=== PATIENT | female | born 1965 | race Caucasian/White ===

== ENCOUNTER 2024-05-29 10:39 | Outpatient (REF) | payer MEDICARE, MEDICAID, SELFPAY ==
--- OUTSIDE RECORDS SUMMARY | 2024-05-30 12:39 | XMS_ITS | Clinical Summary ---
Author Organization [facility] Address [address] [place] [address] Care Team Providers Care Accreditation Specialist Name Role Phone ToyinDavis pryor RATOPRINTER-C Primary Care Provider [phone] Source Comments PLEASE NOTE, if this patient is a minor, it may be UNLAWFUL to discuss sensitive information that is contained in these records (such as FAMILY PLANNING, MENTAL HEALTH or SUBSTANCE ABUSE) with the minor patient's parent or other person without the patient's specific authorization.[facility] Allergies No known active allergies Medications miscellaneous medical supply miscIndications:Hi p pain,Protrusion of intervertebral disc of lumbosacral region,Unstable gait Cane x 99 years 1 Each 01/15/20 21 Active miscellaneous medical supply miscIndications:Pr otrusion of intervertebral disc of lumbosacral region,DDD (degenerative disc disease), lumbar Dispense 1 walker with wheels, brake and bench. Lifetime use. Dx: DDD (degenerative disc disease), lumbar [M51.36], Protrusion of intervertebral disc of lumbosacral region [M51.27] 1 Each 08/20/19 22 Active miscellaneous medical supply miscIndications:Pr otrusion of intervertebral disc of lumbosacral region,Primary osteoarthritis of left knee,BMI 40.0-44.9, adult ([facility]) Dispense 1 lightweight wheelchair with back and seat cushion. Lifetime use. Dx: Protrusion of intervertebral disc of lumbosacral region [M51.27], Primary osteoarthritis of left knee [M17.12], BMI 40.0-44.9, adult ([facility]) [Z68.41] 1 Each 09/04/19 22 Active miscellaneous medical supply miscIndications:DD D (degenerative disc disease), lumbar,Protrusion of intervertebral disc of lumbosacral region Dispense 1 electric heating pad. Lifetime use. Dx: Protrusion of intervertebral disc of lumbosacral region [M51.27], DDD (degenerative disc disease), lumbar [M51.36] 1 Each 09/09/19 22 Active prazosin (MINIPRESS) 1 mg capsule [facility]/pharmacy #[address] [place] [address] 30.00 Each 0 30 TAKE 1 CAPSULE BY MOUTH EVERYDAY AT BEDTIME Authorized by: ISABELLE DAVALOS 10/19/19 22 Active traZODone (DESYREL) 150 mg tablet [facility]/pharmacy #[address] [place] [address] 60.00 Each 2 30 TAKE 1-2 TABLETS BY MOUTH AT BEDTIME, NEEDED FOR SLEEP Authorized by: ISABELLE DAVALOS 10/12/19 22 Active sertraline 150 mg cap [facility]/pharmacy #[facility] [place], [place] [phone] 30.00 Capsule 3 30 Unit Strength: 150 MG Authorized by: ISABELLE DAVALOS 04/14/19 23 Active blood pressure test kit-large SMBP Program - [employer] - Checking BP Daily 1 Kit 05/25/19 23 Active acetaminophen (TYLENOL) 500 mg tabletIndications: DDD (degenerative disc disease), lumbar,Protrusion of intervertebral disc of lumbosacral region TAKE 2 TABLETS BY MOUTH EVERY 8 HOURS NEEDED FOR PAIN. 90 Tablet 2 03/13/19 25 Active amLODIPine (NORVASC) 10 mg tabletIndications: Essential hypertension Take 1 Tablet by mouth once daily 90 Tablet 1 03/13/19 25 Active baclofen (LIORESAL) 10 mg tabletIndications: DDD (degenerative disc disease), lumbar,Protrusion of intervertebral disc of lumbosacral region,Primary osteoarthritis of left knee Take 1 Tablet by mouth 2 (two) times daily as needed for muscle spasms 60 Tablet 2 03/13/19 25 Active cetirizine (ZYRTEC) 10 mg tabletIndications: Seasonal allergies TAKE 1 TABLET BY MOUTH ONCE DAILY FOR SEASONAL ALLERGIES Strength: 10 mg 90 Tablet 1 03/13/19 25 Active diclofenac sodium (VOLTAREN) 1 % gelIndications:DDD (degenerative disc disease), lumbar,Protrusion of intervertebral disc of lumbosacral region,Primary osteoarthritis of left knee Apply topically 2 (two) times daily as needed for pain 100 g 03/13/19 25 Active hydroCHLOROthiazid e (HYDRODIURIL) 25 mg tabletIndications: Essential hypertension Take 1 Tablet by mouth once daily for high blood pressure 90 Tablet 1 03/13/19 25 Active hydrocortisone 2.5 % cream Apply topically 2 (two) times daily to affected area 28 g 1 03/13/19 25 Active lidocaine (LIDODERM) 5 % patchIndications:D DD (degenerative disc disease), lumbar,Protrusion of intervertebral disc of lumbosacral region,Primary osteoarthritis of left knee Place 1 Patch onto the skin once daily (every 24 hours) 30 Patch 2 03/13/19 25 Active naproxen (NAPROSYN) 500 mg tabletIndications: DDD (degenerative disc disease), lumbar,Protrusion of intervertebral disc of lumbosacral region,Primary osteoarthritis of left knee Take 1 Tablet by mouth 2 (two) times daily with a meal 90 Tablet 1 03/13/19 25 Active omeprazole (PRILOSEC) [address] capsuleIndications :Hiatal hernia with GERD Take 1 Capsule by mouth every morning before breakfast 90 Capsule 1 03/13/19 25 Active pravastatin (PRAVACHOL) 20 mg tabletIndications: hypercholesterolem ia Take 1 Tablet by mouth nightly at bedtime Indications: high cholesterol 90 Tablet 1 03/13/19 25 Active hydrOXYzine pamoate (VISTARIL) 25 mg capsule TAKE 1 CAPSULE BY MOUTH THREE TIMES A DAY NEEDED FOR ANXIETY OR SLEEP 90 Capsule 1 04/10/19 25 Active Active Problems Problem Noted Date Diagnosed Date Mixed hyperlipidemia 09/08/2021 Walker as ambulation aid 08/11/2021 Protrusion of intervertebral disc of lumbosacral region 01/14/2021 Overview (02/03/2021): Report: MR Lumbar Spine WO Ordered By: VENANCIO MAGALLON PA-C Date: 01/10/2021 12:38:24 PM -05:00 Status: F MR Lumbar Spine WO INDICATIONS: RECURRENT CHRONIC LT SIDED LBP. COMPARISON: X-ray series 03/18/2020. TECHNIQUE: Multiplanar MR sequences of the lumbar spine were obtained without the administration of intravenous contrast. FINDINGS: For the purposes of this dictation, the lowest well-formed intervertebral disc space is assumed to be the L5-S1 level, and there are presumed to be 5 lumbar type vertebral bodies. The vertebral bodies are normally aligned. Bone marrow signal intensity is within normal limits. Conus medullaris terminates at the level of L1. Visualized cauda equina is unremarkable. Levels T12-L1: Mild disc desiccation.. No central or neural foraminal stenosis. L1-L2: Mild disc desiccation and annular bulge. Bilateral facet arthrosis. No central or neural foraminal stenosis. L2-L3: Mild disc desiccation. Posterior broad-based disc bulge. Fluid attenuation within the facet articulations and mild ligamentous laxity. No central canal stenosis and neural foraminal narrowing. L3-L4: Disc desiccation and mild annular bulge.. No central or neural foraminal stenosis. Mild facet arthrosis. L4-L5: Broad-based annular bulge. Trace right subarticular disc protrusion causing mild asymmetric to the right lateral recess and minimal narrowing in the right neural foramina. Ligamentous laxity and facet arthrosis. No central canal stenosis. L5-S1: Disc desiccation and left paracentral 6 x 9 mm disc protrusion with mass effect upon the traversing S1 nerve root and posterior displacement of S2 nerve root. Effacement of the left lateral recess. Bilateral facet arthrosis, right greater than left. Mild ligamentous laxity. No significant central canal stenosis. No right neural foraminal narrowing. Moderate to severe left neural foraminal narrowing The visualized soft tissues are unremarkable. IMPRESSION: 1. 6 x 9 mm left paracentral disc protrusion extending into the left lateral recess at L5-S1 with mass effect upon the traversing S1 nerve root and posterior displacement of the S2 nerve root. 2. No central canal stenosis. Fatty liver 12/05/2020 Overview (12/05/2020): [address] [address] A Member of [facility] Patient: SCOTT ALTAMIRANO : 1965 -04:00 Age: 54 Gender: F Account: [id number] Report: CT Abdomen & Pelvis WO Cont Ordered By: KAROLYN PITTMAN MD Date: 08/13/2020 4:23:39 PM -04:00 Status: F History: Left flank pain. Comparison: None Findings: Noncontrast abdomen pelvis CT was performed on a GE CT scanner which utilized low-dose iterative reconstruction technique with automatic exposure control based on patient size. Dose: 1221.03 DLP (mGy-cm) No incidental findings per PQRS measures. Diffuse fatty infiltration of the liver. Progressive small hiatal hernia. Multiple gallstones in the gallbladder fundus measuring up to 2 cm. Normal distal stomach, spleen, pancreas, adrenal glands, right kidney, small bowel, appendix, colon, bladder, rectum, uterus and adnexa. Left kidney demonstrates a lower pole partially exophytic 8 mm hyperdense peripheral cortical renal lesion. There is no free air, free fluid, aneurysm, bowel obstruction or adenopathy. Osseous and vascular structures unremarkable. IMPRESSION: No acute intra-abdominal abnormality. Cholelithiasis. Fatty infiltration of the liver. 8 mm peripheral left kidney lower pole lesion suggesting possible hyperdense cyst. Consider nonemergent outpatient renal ultrasound follow-up. Hiatal hernia with GERD 12/05/2020 BMI 40.0-44.9, adult ([facility]) 12/05/2020 Seasonal allergies 12/05/2020 Essential hypertension 12/04/2020 Primary insomnia 12/04/2020 Anxiety and depression 12/04/2020 DDD (degenerative disc disease), lumbar 12/05/19 21 Overview (02/03/2021): ??ADDENDUM 01/16/2021: - MRI of lumbar spine from 01/10/2021 shows 6 x 9 mm left paracentral disc protrusion extending into the left lateral recess at L5-S1 with mass effect upon the traversing S1 nerve root and posterior displacement of the S2 nerve root. [facility] Report: CR Spine Lumbar 2 or 3 Views HISTORY: The patient is a 54-year-old female with low back pain, nontraumatic. FINDINGS: AP, lateral, and coned-down spot lateral views of the lumbosacral spine demonstrate normal alignment of the bony structures. No fracture is seen. The disc spaces are well-maintained. Degenerative osteophytes are present at the L2-3 level. IMPRESSION: No acute findings. Small degenerative osteophytes are present at L2- 3. Otherwise, normal examination of the lumbosacral spine. Hx of section 12/04/2020 Primary osteoarthritis of left knee 12/04/2020 Overview (12/04/2020): Report: CR Knee LT 4 or more View HISTORY: The patient is a 54-year-old female with left knee pain for several months. No history of trauma is provided. FINDINGS: AP, lateral, internal rotation, and external rotation views of the left knee are obtained. The study demonstrates no fracture or dislocation. There is peaking of the tibial spines and small osteophytes arise from the medial and lateral femoral condyles and medial tibial plateau. These findings are consistent with mild osteoarthritis and have mildly progressed since the prior study 03/14/2014. There is a small suprapatellar joint effusion. IMPRESSION: No evidence of bony injury. Mild osteoarthritis, mildly progressive since 03/14/2014. There is a small suprapatellar joint effusion. Encounters Date Type Department Care Team Description 03/13/2024 10:40 AM EST Office Visit [address] [address] Davis Deal FNP-C Routine general medical examination at a health care facility (Primary Dx); Colon cancer screening; DDD (degenerative disc disease), lumbar; Protrusion of intervertebral disc of lumbosacral region; Seasonal allergies; Primary osteoarthritis of left knee; Essential hypertension; Mixed hyperlipidemia; BMI 40.0-44.9, adult ([facility]); Anxiety and depression; Hiatal hernia with GERD; Primary insomnia; LUQ pain; Elevated red blood cell count 03/13/2024 Travel from Last 3 Months Immunizations Immunization Administration Dates Next Due Flu, Cell Culture based, Pre servative Free, 6m+, Flucelvax 11/14/2019 Flu, Preservative Free 11/13/2021,12/04/2020 Influenza (FLUBLOK),recombinant,injectable,preservative Free 02/15/2024 Moderna COVID-19 Vaccine, re d cap blue label, 12+ Primary Series 07/14/2020,06/16/2020 TDAP 06/24/2020 ZOSTER VACCINE, RECOMBINANT (SHINGRIX) 1,09/07/2020 Family History Medical History Relation Name Comments No Known Problems Brother No Known Problems Sister Relation Name Status Comments Brother Father Sister Social History Tobacco Use Types Packs/Day Years Used Date Smoking Tobacco: Never Smokeless Tobacco: Never Tobacco Cessation:Counseling Given: Not Answered Alcohol Use Standard Drinks/Week Comments Never 0 (1 standard drink = 0.6 oz pur e alcohol) Social Connections Answer Date Recorded Connectedness 0 03/23/2022 Financial Resource Strain Answer Date R ecorded Financial Resource Strain 0 2022 Stress Answer Date Recorded Stress 0 03/23/2022 Physical Activity Answer Date Recorded Physical Activity 0 06/16/2020 Food Insecurity Answer Date Recorded Food 0 03/23/2022 Transportation Needs Answer Date Record ed Transportation 0 03/23/2022 Housing Stability Answer Date Recorded Housing 0 03/23/2022 Safety and Environment Answer Date Fly rded Safety 0 03/23/2022 Utilities Answer Date Recorded Utilities 0 03/23/2022 Employment Answer Date Recorded Stress 0 05/18/2021 Comments No Sex and Gender Information Value Date Recorded Sex Assigned at Female 12/05/2020 1:10 AM PDT Legal Sex Female 7:58 AM PDT Gender Identity Female 12/05/2020 1:10 AM PDT Sexual Orientation Straight 12/05/2020 1: 10 AM PDT Last Filed Vital Signs Vital Sign Reading Time Taken Comments Blood Pressure 110/88 03/13/2024 10:51 AM EST Pulse 95 03/13/2024 10:51 AM EST Temperature 37.2 ??C (98.9 ??F) 02/15/2024 9:39 AM ES T Respiratory Rate 18 03/13/2024 10:51 AM EST Oxygen Saturation 99% 03/13/2024 10:51 AM EST Inhaled Oxygen Concentration - - Weight 99.8 kg (220 lb) 03/13/2024 10:51 AM EST Height 157.5 cm (5' 2 ) 03/13/2024 10:51 AM EST Body Mass Index 40.24 03/13/2024 10:51 AM EST Plan of Treatment Upcoming Encounters Date Type Department Care Team (Late st Contact Info) Description 06/19/2024 10:20 AM EDT Office Visit [facility] [address] [place] [phone] Davis Deal FNP-C [address] [place] [address] 06/19/2024 11:20 AM EDT Office Visit [facility] [address] [place] [address] Beverly Blount MD [address] [place] [address] Health Maintenance Due Date Last Done Comments Anxiety Screening 1965 HPV Screening 1965 Pap + HPV 1965 Cervical Cancer Screening [address] Colonography 2009 Colonoscopy 2009 Flexible Sigmoidoscopy 2009 [id number] ( season) 2024 07/14/2020, 06/16/2020 Postponed from 10/30/2023 (Patient postponement) Tobacco Screening 02/14/2025 02/15/2024, , 05/24/2022 Depression Monitoring 03/13/2025 03/13/2024 , 03/23/2022, 02/03/2021 Lipid Screening 03/13/2025 03/13/2024, 07/30, 04/26/2022, Additional history exists Medicare Annual Wellness Visit 03/13/2025 03/13/2024, 08/26/2022 FIT/gFOBT 05/06/2025 05/06/2024 Breast Cancer Screening (Mammogram) 03/26/2026 03/26/2024, 03/01/2024 Diabetes Screening 03/13/2027 03/13/2024, 0 03/13/2024, 08/26/2022, Additional history exists Colorectal Cancer Screening 05/07/2027 Fecal DNA 05/07/2027 05/06/2024 Imm-DTaP/Tdap/Td (2 - Td or Tdap) 06/24/2030 06/24/2020 Imm-Zoster, Recombinant Completed 11/20/2020, 09/07 HIV Screening Completed 12/04/2020 Hepatitis C Screening Completed 04/26/2022 Imm-Influenza Completed 02/15/2024, 10/29, 12/04/2020, Additional history exists Alcohol and Drug Screen Completed 03/13/19, 03/23/2022, 07/21/2021, Additional history exists Cervical Ablation/Cold-Knife Conization Discontinued Cervical Cryotherapy Discontinued Colposcopy Discontinued Endometrial Biopsy Discontinued Excision/Leep Discontinued HPV Genotyping Discontinued Imm-Hepatitis B Discontinued Vaginal Pap Discontinued Vulvoscopy Discontinued Goals Goal Patient Goal Type Associated Problems Recent Progress Patient-Stated? Author Exercise 3x per week (30 min per time) Exercise Yes Lazaro Porras, Amilcar Hypertension: Check BP regularly (@home or in office) General No Lazaro Porras PharmD Note: 1 daily Remain at or Below Target Blood Pressure General No Lazaro Porras PharmD Note: <130/80 mmHg Procedures Procedure Name Priority Date/Time Associated Diagnosis Comments COLOGUARD Routine 05/06/2024 4:00 AM EDT Colon cancer screening OTHER ORDERS SCANNED DOCUMENT 04/04/2024 3:00 AM EST REFERRAL SCANNED DOCUMENT 03/30/2024 3:00 AM EST IMAGING SCANNED DOCUMENT 03/26/2024 3:00 AM EST HISTORIC MAMMOGRAM 03/26/2024 3: 00 AM EST HEMOGLOBIN GLYCOSYLATED A1C Routine 03/13/2024 12:25 PM EST Routine general medical examination at a health care facility LIPID PANEL Routine 03/13/2024 12:25 PM EST Routine general medical examination at a health care facility THYROID CASCADING REFLEX PANEL Routine 03/13/2024 12:25 PM EST Routine general medical examination at a health care facility COMPREHENSIVE METABOLIC PANEL Routine 03/13/2024 12:25 PM EST Routine general medical examination at a health care facility BLOOD COUNT COMPLETE AUTO&AUTO DIFRNTL WBC Routine 03/13/2024 12:25 PM EST Routine general medical examination at a health care facility IMAGING SCANNED DOCUMENT 03/01/2024 3:00 AM EST REFERRAL FOR MAMMOGRAM Routine 03/01/2024 3:00 AM EST Screening mammogram for breast cancer HEPATITIS C AB W/RFLX HCV RNA, QT, RT PCR Routine 04/26/2022 11:34 AM EST Essential hypertension BMI 40.0-44.9, adult ([facility]) Hiatal hernia with GERD Mixed hyperlipidemia Anxiety and depression Venereal disease screening DDD (degenerative disc disease), lumbar Primary osteoarthritis of left knee HIV 1/2 AG & AB W/RFLX (4TH GEN) Routine 12/04/2020 2:52 PM EDT Screening for HIV (human immunodeficiency virus) from Last 3 Months or Most Recently Relevant to Health Maintenance Results * COLOGUARD (05/06/2024 4:00 AM EDT) Stool Stool specimen / Unknown 05/06/2024 4:00 AM EDT Elaina Toyin RATOPRINTER-C LAB - NO BLOOD DRAW Final Result [facility] [address] [place] [address], [address] [facility] [id number] [place] [address], [place] [phone] * OTHER ORDERS SCANNED DOCUMENT (04/04/2024 3:00 AM EST) 04/04/2024 3:00 AM EST Elaina Toyin RATOPRINTER-C SCAN OTHER ORDERS Final R esult * REFERRAL SCANNED DOCUMENT (03/30/2024 3:00 AM EST) 03/30/2024 3:00 AM EST [facility] Provider Default SCAN REFERRAL Final Resu lt * HISTORIC MAMMOGRAM (03/26/2024 3:00 AM EST) 03/26/2024 3:00 AM EST us Beverly Blount MD IMG MAMMO Final Result * IMAGING SCANNED DOCUMENT (03/26/2024 3:00 AM EST) Only the most recent of2 resultswithin the time period is included. 03/26/2024 3:00 AM EST us Beverly Blount MD SCAN IMAGING Final Result * THYROID CASCADING REFLEX PANEL (03/13/2024 12:25 PM EST) Pathologist [facility] TSH 2.46 0.40 - 4.50 mIU/L [facility] Blood Blood / Unknown 03/13/2024 1 2:25 PM EST 03/13/2024 12:25 PM EST Narrative [facility] - 03/14/2024 9:48 AM EST FASTING:YES Davis Deal RATOPRINTER-C LAB - BLOOD DRAW Edited R esult - Final [facility] [address] [place] [address], [facility] [address] [address] * (ABNORMAL) BLOOD COUNT COMPLETE AUTO&AUTO DIFRNTL WBC (03/13/2024 12:25 PM EST) Pathologist [facility] WHITE BLOOD CELL COUNT 10.0 3.8 - 10.8 Thousand/ uL [facility] RED BLOOD CELL COUNT 5.96(H) 3.80 - 5.10 Million/u L [facility] HEMOGLOBIN 15.8(H) 11.7 - 15.5 g/dL [facility] HEMATOCRIT 48.9(H) 35.0 - 45.0 % [facility] MCV 82.0 80.0 - 100.0 fL [facility] MCH 26.5(L) 27.0 - 33.0 pg [facility] MCHC 32.3 32.0 - 36.0 g/dL [facility] Comment: For adults, a slight decrease in the calculated MCHC value (in the range of 30 to 32 g/dL) is most likely not clinically significant; however, it should be interpreted with caution in correlation with other red cell parameters and the patient's clinical condition. RDW 14.1 11.0 - 15.0 % [facility] PLATELET COUNT 416(H) 140 - 400 Thousand/ uL [facility] MPV 10.9 7.5 - 12.5 fL [facility] ABSOLUTE NEUTROPHILS 6,780 1,500 - 7,800 cells/uL [facility] ABSOLUTE LYMPHOCYTES 2,140 850 - 3,900 cells/uL [facility] ABSOLUTE MONOCYTES 890 200 - 950 cells/uL [facility] ABSOLUTE EOSINOPHILS 120 15 - 500 cells/uL [facility] ABSOLUTE BASOPHILS 70 0 - 200 cells/uL [facility] NEUTROPHILS PCT 67.8 % [employer] LYMPHOCYTES 21.4 % [facility] MONOCYTES 8.9 % [facility] EOSINOPHILS 1.2 % [facility] BASOPHILS 0.7 % [employer] [facility] Blood Blood / Unknown 03/13/2024 1 2:25 PM EST 03/13/2024 12:25 PM EST Narrative [facility] - 03/14/2024 9:48 AM EST FASTING:YES Davis Deal RATOPRINTER-C LAB - BLOOD DRAW Windy owusu - Final [facility] [address] [address], [facility] [address] [place] [address] * HEMOGLOBIN GLYCOSYLATED A1C (03/13/2024 12:25 PM EST) HEMOGLOBIN A1C 5.6 <5.7 % of total Hgb [facility] Comment: For the purpose of screening for the presence of diabetes: <5.7% ? Consistent with the absence of diabetes 5.7-6.4% ?Consistent with increased risk for diabetes ?(prediabetes) > or =6.5% ??Consistent with diabetes This assay result is consistent with a decreased risk of diabetes. Currently, no consensus exists regarding use of hemoglobin A1c for diagnosis of diabetes in children. According to [place] Diabetes Association (ADA) guidelines, hemoglobin A1c <7.0% represents optimal control in non- diabetic patients. Different metrics may apply to specific patient populations. Standards of Medical Care in Diabetes(ADA). ?? Blood Blood / Unknown 03/13/2024 1 2:25 PM EST 03/13/2024 12:25 PM EST Narrative [facility] - 03/14/2024 9:48 AM EST FASTING:YES Davis Deal RATOPRINTER-C LAB - BLOOD DRAW Edited R esult - Final [facility] [address] [address], [facility] [address] [address] * (ABNORMAL) LIPID PANEL (03/13/2024 12:25 PM EST) CHOLESTEROL, TOTAL 200(H) <200 mg/dL [facility] HDL CHOLESTEROL 57 > OR = 50 mg/dL [facility] TRIGLYCERIDES 182(H) <150 mg/dL [facility] LDL-CHOLESTEROL 113(H) 99 mg/dL (calc) [facility] Comment: Reference range: <100 Desirable range <100 mg/dL for primary prevention; ?? <70 mg/dL for patients with CHD or diabetic patients with > or = 2 CHD risk factors. LDL-C is now calculated using the Desmond-Shadia calculation, which is a validated novel method providing better accuracy than the Friedewald equation in the estimation of LDL-C. Desmond SS et al. NATALIO. 2013;310(19): 8952-0206 (http://education.Ad Infuse/faq/RKE548) CHOL/HDLC RATIO 3.5 <5.0 (calc) [facility] NON-HDL CHOLESTEROL 143(H) <130 mg/dL (calc) [facility] Comment: For patients with diabetes plus 1 major ASCVD risk factor, treating to a non-HDL-C goal of <100 mg/dL (LDL-C of <70 mg/dL) is considered a therapeutic option. Blood Blood / Unknown 03/13/2024 1 2:25 PM EST 03/13/2024 12:25 PM EST Narrative [facility] - 03/14/2024 9:48 AM EST FASTING:YES Davis Adlerri RATOPRINTER-C LAB - BLOOD DRAW Final Re sult [facility] [address] [address], [facility] [address] [place] [address] * (ABNORMAL) COMPREHENSIVE METABOLIC PANEL (03/13/2024 12:25 PM EST) GLUCOSE 87 65 - 99 mg/dL [facility] Comment: ?Fasting reference interval UREA NITROGEN (BUN) 16 7 - 25 mg/dL [facility] CREATININE (blood) 0.75 0.50 - 1.03 mg/dL [facility] EGFR 92 > OR = 60 mL/min/1. 73m2 [facility] BUN/CREATININE RATIO SEE NOTE: [facility] Comment: ?? Not Reported: BUN and Creatinine are within ?? reference range. ? SODIUM 140 135 - 146 mmol/L [facility] POTASSIUM 3.9 3.5 - 5.3 mmol/L [facility] CHLORIDE 97(L) 98 - 110 mmol/L [facility] CARBON DIOXIDE 32 20 - 32 mmol/L [facility] CALCIUM 10.9(H) 8.6 - 10.4 mg/dL [facility] PROTEIN, TOTAL 7.9 6.1 - 8.1 g/dL [facility] ALBUMIN 4.7 3.6 - 5.1 g/dL [facility] GLOBULIN 3.2 1.9 - 3.7 g/dL (calc) [facility] ALBUMIN/GLOBULI N RATIO 1.5 1.0 - 2.5 (calc) [facility] BILIRUBIN, TOTAL 0.4 0.2 - 1.2 mg/dL [facility] ALKALINE PHOSPHATASE 95 37 - 153 U/L [facility] AST 24 10 - 35 U/L [facility] ALT 27 6 - 29 U/L [facility] Blood Blood / Unknown 03/13/2024 1 2:25 PM EST 03/13/2024 12:25 PM EST Narrative [facility] - 03/14/2024 9:48 AM EST FASTING:YES Davis Deal RATOPRINTER-C LAB - BLOOD DRAW Final Re sult [facility] [address] [address], [facility] [address] [address] * REFERRAL FOR MAMMOGRAM (03/01/2024 3:00 AM EST) 03/01/2024 3:00 AM EST Beverly Blount MD IMG RFL MAMMO Final Result * HEPATITIS C AB W/RFLX HCV RNA, QT, RT PCR (04/26/2022 11:34 AM EST) HEPATITIS C ANTIBODY NON-REACT SHAYE NON-REACT SHAYE [facility] SIGNAL TO CUT-OFF 0.06 <1.00 [facility] Comment: HCV antibody was non-reactive. There is no laboratory evidence of HCV infection. In most cases, no further action is required. However, if recent HCV exposure is suspected, a test for HCV RNA (test code 46590) is suggested. For additional information please refer to http://education.[employer]e/faq/ZOE77f2 (This link is being provided for informational/ educational purposes only.) Blood Blood / Unknown 04/26/2022 1 1:34 AM EST 04/26/2022 11:35 AM EST Narrative [facility] - 04/27/2022 10:21 PM EST PATIENT UNABLE TO VOID; ADVISED TO RETURN FOR COLLECTION. Cecilia ANP-[facility] LAB - BLOOD DRAW Edited Result - Final Performing Organization Address [facility] Co de Phone Number [facility] [address] [address], [facility] [address] ([address]) [place] [address] * HIV 1/2 AG & AB W/RFLX (4TH GEN) (12/04/2020 2:52 PM EDT) HIV AG/AB, 4TH GEN NON-REAC TIVE NON-REAC TIVE [facility] Comment: HIV-1 antigen and HIV-1/HIV-2 antibodies were not detected. There is no laboratory evidence of HIV infection. PLEASE NOTE: This information has been disclosed to you from records whose confidentiality may be protected by state law. ??If your state requires such protection, then the state law prohibits you from making any further disclosure of the information without the specific written consent of the person to whom it pertains, or as otherwise permitted by law. A general authorization for the release of medical or other information is NOT sufficient for this purpose. ?? For additional information please refer to http://education.[employer]/faq/IYO561 (This link is being provided for informational/ educational purposes only.) The performance of this assay has not been clinically validated in patients less than 2 years old. Blood Blood / Unknown 12/04/2020 2 :52 PM EDT 12/04/2020 2:53 PM EDT us Анна Montes PA-C LAB - BLOOD DRAW Final Result Performing Organization Address [facility]/ZIP Co de Phone Number [facility] [address] [address], [facility] [address] [address] from Last 3 Months or Most Recently Relevant to Health Maintenance Insurance [place] - [place] Care Teams Accreditation Specialist Relationship Specialty Start Date End Date Davis Deal FNP-C [address] [place] [address] PCP - General Internal Medicine 11/23/22
--- OUTSIDE RECORDS SUMMARY | 2024-05-30 12:39 | XMS_ITS | Clinical Summary ---
Author Organization [facility] it Address [address] [place] [phone] Care Team Providers Care Nursing Home Administrator Name Role Phone Simone Harmon MD Primary Care Provider [phone] Surgical History Surgery Date Site/Laterality Comments SECTION PROCEDURE: HISTORICAL Medical History Medical History Date Comments Allergic rhinitis 07/04/2015 DX:Allergic rh initis Arthralgia of multiple sites 03/14/2014 DX: Arthralgia of multiple sites Depression with anxiety 09/20/2017 DX:Depre ssion with anxiety Dyspepsia 03/21/2014 DX:Dyspepsia History of Helicobacter pylo ri infection 03/21/2014 DX:History of Helicobacter p ylori infection Insomnia 12/31/2014 DX:Insomnia Plantar fasciitis 09/20/2017 DX:Plantar fas ciitis Vitamin D deficiency 07/04/2015 DX:Vitamin D deficiency Family History Medical History Relation Name Comments No Known Problems Father No Known Problems Mother Relation Name Status Comments Father Alive Mother Alive Social History Tobacco Use Types Packs/Day Years Used Date Smoking Tobacco: Never Smokeless Tobacco: Never Alcohol Use Standard Drinks/Week Comments No 0 (1 standard drink = 0.6 oz pur e alcohol) Comments Unknown Sex and Gender Information Value Date Recorded Sex Assigned at Not on file Legal Sex Female 2:27 AM EST Gender Identity Not on file Sexual Orientation Not on file Obstetrics History Plan of Treatment Health Maintenance Due Date Last Done Comments Breast Cancer Screening 1965 Hepatitis B Vaccines (1 of 3 - 19+ 3-dose series) 09/16/1983 Cervical Cancer Screening: P ap Smear 1985 Pneumococcal Vaccine: 50+ Ye ars (1 of 1 - PCV) 2014 Zoster Vaccines (1 of 2) 2014 Cholesterol Screening (Lipid Panel) 01/31/2022 Colorectal Cancer Screening: Colonoscopy 01/31/2022 HIV Screening 01/31/2022 Hepatitis C Screening 01/31/2022 Social Influencers of Health Screening 01/31/2022 Hypertension/CHF/CAD Annual BMP Blood Test 02/13/2022 COVID-19 Vaccine (1 - 2023-2 5 season) 2023 Influenza Vaccine (#1) 2023 11/14/2019 Depression Screening 03/13/2025 03/13/2024 DTaP,Tdap,and Td Vaccines (2 - Td or Tdap) 06/24/2030 06/24/2020 RSV Immunization Adult Patie nts (1 - 1-dose 75+ series) 09/16/2039 HIB Vaccines Aged Out No longer eligi ble based on patient's age to complete this topic HPV Vaccines Aged Out No longer eligi ble based on patient's age to complete this topic Hepatitis A Vaccines Aged Out No long er eligible based on patient's age to complete this topic IPV Vaccines Aged Out No longer eligi ble based on patient's age to complete this topic MMR Vaccines Aged Out No longer eligi ble based on patient's age to complete this topic Meningococcal ACWY Vaccine Aged Out N o longer eligible based on patient's age to complete this topic Meningococcal B Vacine Aged Out No lo nger eligible based on patient's age to complete this topic Pneumococcal Vaccine: Pediat rics (0 to 5 Years) and At-Risk Patients (6 to 64 Years) Aged Out No longer eligi ble based on patient's age to complete this topic RSV Immunization Patients Un yuri 20 months Aged Out No longer eligible b ased on patient's age to complete this topic Varicella Vaccines Aged Out No longer eligible based on patient's age to complete this topic Care Teams Nursing Home Administrator Relationship Specialty Start Date End Date Simone Harmon MD PCP - General Internal Medicine 01/05/18
== END 2024-05-29 10:40 | disposition home or self-care (01) ==
LOC: HO.HOSX 10:39
PROVIDERS: Visit Provider Physician Assistant
DX: Z13.89 Encounter for screening for other disorder (principal)

== ENCOUNTER 2024-09-19 09:46 | Outpatient (REF) | payer MEDICARE, MEDICAID, SELFPAY ==
--- NOTE | ~2024-09-19 | XR_ITS ---
EXAMINATION: XR KNEE, LEFT CLINICAL INFORMATION: M25.562 - Pain in left knee COMPARISON: None available. TECHNIQUE: AP view standing position both knees. Lateral and sunrise view, of the left knee. FINDINGS: Joint space narrowing involving mostly the medial compartment both knees with sclerosis along the articular surface of the medial tibial plateaus, bilaterally. Marginal osteophyte formation femoral condyles and tibial plateau, pronounced on the left knee. No acute cortical disruption. No suprapatellar bursa joint effusion, left knee. No lytic or blastic lesions. XR/XR knee LT 3V IMPRESSION: Tricompartmental osteoarthrosis involving mostly the medial compartments of both knees. Electronically signed by: Toribio Arreola MD 09/19/2024 11:24 AM EDT
--- OUTSIDE RECORDS SUMMARY | 2024-09-19 10:21 | XMS_ITS | Clinical Summary ---
[facility] Organization [facility] it Address [address] [place] [phone] Care Team Providers Care Senior Net Software Engineer Name Role Phone Simone Harmon MD Primary Care Provider [phone] Surgical History Surgery Date Site/Laterality Comments SECTION [...] Last Done Comments Breast Cancer Screening 1965 Cervical Cancer Screening: P ap Smear 1985 Pneumococcal Vaccine: 50+ Ye ars (1 of 1 - PCV) 2014 Zoster Vaccines (1 of 2) 2014 COVID-19 Vaccine (2023-2 5 season) 2023 Depression Screening 02/29/2024 Influenza Vaccine (#1) 2024 11/14/2019 DTaP,Tdap,and Td Vaccines (2 - Td or [...] patient's age to complete this topic Hepatitis B Vaccines Aged Out No long er eligible [...] age to complete this topic Meningococcal B Vaccine Aged Out No l onger eligible based on patient's age to complete this topic RSV Immunization Patients Un yuri 20 months Aged Out No longer eligible b ased on patient's age to complete this topic Varicella Vaccines Aged Out No longer eligible based on patient's age to complete this topic Care Teams Senior Net Software Engineer Relationship Specialty Start Date End Date Simone Harmon MD PCP - General Internal Medicine 01/05/18
== END 2024-09-19 09:47 | disposition home or self-care (01) ==
LOC: HO.HOSX 09:46
PROVIDERS: Visit Provider Physician Assistant
DX: M17.12 Unilateral primary osteoarthritis, left knee (principal); M25.562 Pain in left knee
CPT/HCPCS: 20610; 73562; 99202; J1010; J2003

== ENCOUNTER 2024-09-19 11:07 | Outpatient (AMB) | payer MEDICARE, MEDICAID, SELFPAY ==
--- NOTE | 2024-09-19 11:14 | A.OFFVIS_ITS ---
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 Patient was seen by PCP, x-rays were obtained and she was referred to orthopedics. Patient reports that she has attended physical therapy however this not helped. She mentions MRI in the past. Patient states constant pain daily that is located at the anterior aspect of knee and radiates up her leg to the lateral aspect of hip. She has difficulty with stair use. She would like to discuss injections. Finds no relief with Naproxen, Tylenol or topical cream. 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 She states pain is worse with prolonged walking and standing. She also has pain with going up and downstairs. The pain is primarily along the anterior portion of the knee which extends medially. PFSH Surgical History (Updated 09/19/24 @ 11:30 by SARAH Rodriguez) Hx of cholecystectomy Social History (Updated 09/19/24 @ 11:31 by SARAH Rodriguez) Patient Tobacco Use Status: Never used Tobacco Current occupational status: unemployed Review of Systems Const All systems reviewed & are unremarkable except as noted in HPI and below Physical Exam Vital Signs: BMI result Body Mass Index 40.8 Const General: cooperative and no acute distress Orientation/consciousness: patient oriented x3 Resp Effort & Inspection: normal respiratory effort and able to speak in complete sentences Cardio Peripheral pulses: Peripheral pulses 2+ throughout Neuro General: patient oriented x3 Extrem Other: Left knee is normal to inspection. No joint effusion present. She has full range of motion with crepitus and lateral retropatellar tenderness. Medial joint line tenderness present. Calf supple and nontender neurovascularly intact. Office Procedures AMB Joint Injection/Aspiration Joint Injection/Aspiration Primary Site: left knee Prep: site was prepped using aseptic technique, ethochloride spray was applied and injection warnings given Injected: 80 mg of, DepoMedrol, with 8 mL of, 1% plain lidocaine and in the joint Approach Used: anterolateral Procedure: The patient tolerated the procedure well and there was some relief with the local anesthesia Coding 77507 - Glenohumeral/Tronchanteric Bursa/Intraarticular Procedure code (CPT) selection complete Results Reviewed Results Reviewed: XR knee LT 3V IMPRESSION: Tricompartmental osteoarthrosis involving mostly the medial compartments of both knees. Assessment & Plan Assessment & Plan (1) Patellofemoral arthritis of left knee: Code(s): M17.12 - Unilateral primary osteoarthritis, left knee Category: Medical Plan: I discussed options with the patient and her significant other in the office today. We discussed the benefits of physical therapy along with steroid injections. She has tried physical therapy with minimal relief therefore she would like to try an injection today. We did inject the left knee with steroid which the patient tolerated well. She will continue to increase activities as tolerated and if symptoms persist or worsen she will contact our office otherwise she will follow up as needed. Orders: Orders XR knee LT 3V 09/19/24 M25.562 - Pain in left knee Coding Level of Care Code New Pt Level 3 (11278) Complex EM visit Add On G2211 Diagnoses Patellofemoral arthritis of left knee M17.12 CPT Codes Coding - Joint 7: 20384 - Glenohumeral/Tronchanteric Bursa/Intraarticular ([id number])
[2024-09-19 11:24] VITALS: BMI 40.8
== END 2024-09-19 12:32 | disposition home or self-care (01) ==
PROVIDERS: PCP Registered Nurse; Visit Provider Physician Assistant
DX: M17.12 Unilateral primary osteoarthritis, left knee (principal)
CPT/HCPCS: 20610; 99203

== ENCOUNTER → 2024-09-19 11:12 | Outpatient (BNV) | payer MEDICARE, MEDICAID, SELFPAY | PROVIDERS: Visit Provider Radiology Diagnostic Radiology | DX: M17.12 Unilateral primary osteoarthritis, left knee (principal) | CPT/HCPCS: 73562 ==